=== PATIENT | female | born 1935 | race Caucasian/White ===

== ENCOUNTER 2017-10-29 02:50 | Inpatient (IN) | payer OTHER ==
[~2017-10-29] VITALS: Ht 167.6 cm; Wt 102.5 kg
[2017-10-29 05:05] LABS: BASOPHIL % 0.3 % (0-2); PLATELET COUNT 225 x10^3mcL (130-400); RED CELL DISTRIBUTION WIDTH 14.7 % (11.5-14.5)
[2017-10-29 05:09] LABS: CALCIUM 8.3 mg/dL (8.5-10.1); CARBON DIOXIDE 26.1 mmol/L (21-32); CHLORIDE SERUM 101 mmol/L (98-107); CREATININE SERUM 0.7 mg/dL (0.6-1.0); GLUCOSE SERUM 339 mg/dL (74-106); POTASSIUM SERUM 4.1 mmol/L (3.5-5.1); SODIUM SERUM 134 mmol/L (136-145)
[2017-10-29] MEDS ORDERED: SIMVASTATIN20 M1 PO (05:12)
[2017-10-29] MEDS ORDERED: LOSARTAN POTASS25 M1 PO (05:12)
[2017-10-29] MEDS ORDERED: FUROSEMIDE40 MG PO (05:13)
[2017-10-29] MEDS ORDERED: DIGOXIN0.25 M1 PO (05:13)
[2017-10-29] MEDS ORDERED: GLUCOVANCE1 TA2 PO (05:14)
[2017-10-29] MEDS ORDERED: NOR10 PO (05:14)
[2017-10-29] MEDS ORDERED: ENALAPRIL MALEA10 MG PO (05:15)
[2017-10-29] MEDS ORDERED: ELIQUIS2.5 MG PO (05:15)
[2017-10-29] MEDS ORDERED: LEVO-T25 MCG PO (05:16)
[2017-10-29] MEDS ORDERED: POTASSIUM CHLO25 MEQ PO (05:17)
[2017-10-29] MEDS ORDERED: GOOD SENSE OMEP20 MG PO (05:19)
[2017-10-29] MEDS ORDERED: CARVEDILOL3.125 M1 PO (05:19)
[2017-10-29] MEDS ORDERED: MELOXICAM7.5 M1 PO (05:20)
[2017-10-29] MEDS ORDERED: DSS100 MG PO (05:20)
[2017-10-29] MEDS ORDERED: PREDNISOLONE SO10 ML OP (05:21)
[2017-10-29 05:22] LABS: ALKALINE PHOSPHATASE 73 U/L (46-116); ALT/SGPT 29 U/L (14-59); AST/SGOT 21 U/L (15-37); BILIRUBIN TOTAL 0.37 mg/dL (0.20-1.00); FREE T4 1.31 ng/dL (0.76-1.46); TOTAL PROTEIN, SERUM 6.7 g/dL (6.4-8.2)
[2017-10-29] MEDS ORDERED: CLOBETASOL PROP0.055 (05:22)
[2017-10-29 05:23] LABS: ALBUMIN 3.2 g/dL (3.4-5.0); CHOLESTEROL 113 mg/dL (<200)
[2017-10-29 12:01] LABS: microscopic required? YES; urine erythrocyte TRACE (NEGATIVE)
[2017-10-29 15:31] LABS: MAGNESIUM 1.7 mg/dL (1.8-2.4); PHOSPHOROUS 3.1 mg/dL (2.5-4.9)
[2017-10-29 16:33] LABS: AMPHETAMINE QUAL UR NONE DETECTED (NEG <=1000)
[2017-10-29 17:55] VITALS: BP 174/82
[2017-10-29 18:26] VITALS: BP 180/87
[2017-10-29 18:33] VITALS: Ht 167.6 cm; Wt 102.5 kg
[2017-10-30 06:13] VITALS: BP 118/54
[2017-10-30 06:46] LABS: BASOPHIL % 0.3 % (0-2); PLATELET COUNT 245 x10^3mcL (130-400)
[2017-10-30 07:06] LABS: RED CELL DISTRIBUTION WIDTH 14.7 % (11.5-14.5)
[2017-10-30 07:13] LABS: CALCIUM 8.9 mg/dL (8.5-10.1); CARBON DIOXIDE 31.7 mmol/L (21-32); CHLORIDE SERUM 98 mmol/L (98-107); CREATININE SERUM 0.6 mg/dL (0.6-1.0); GLUCOSE SERUM 254 mg/dL (74-106); MAGNESIUM 2.5 mg/dL (1.8-2.4); PHOSPHOROUS 2.9 mg/dL (2.5-4.9); SODIUM SERUM 138 mmol/L (136-145)
[2017-10-30 09:33] VITALS: BP 166/72
[2017-10-30 13:05] VITALS: BP 150/88
[2017-10-30 17:33] VITALS: BP 156/79
[2017-10-31 05:57] VITALS: BP 172/89
[2017-10-31 06:57] LABS: BASOPHIL % 0.2 % (0-2); PLATELET COUNT 210 x10^3mcL (130-400)
[2017-10-31 07:12] LABS: RED CELL DISTRIBUTION WIDTH 15.1 % (11.5-14.5)
[2017-10-31 07:21] LABS: CALCIUM 8.3 mg/dL (8.5-10.1); CARBON DIOXIDE 27.4 mmol/L (21-32); CHLORIDE SERUM 100 mmol/L (98-107); CREATININE SERUM 0.6 mg/dL (0.6-1.0); GLUCOSE SERUM 288 mg/dL (74-106); POTASSIUM SERUM 3.4 mmol/L (3.5-5.1); SODIUM SERUM 135 mmol/L (136-145)
[2017-10-31 09:29] VITALS: BP 148/75
[2017-10-31 10:00] VITALS: BP 156/66
[2017-10-31 13:11] VITALS: BP 138/79
[2017-10-31 17:26] VITALS: BP 170/98
[2017-10-31 22:10] VITALS: BP 128/70
[2017-11-01 05:41] VITALS: BP 114/58
[2017-11-01 07:09] LABS: BASOPHIL % 0.3 % (0-2); PLATELET COUNT 194 x10^3mcL (130-400)
[2017-11-01 07:15] LABS: RED CELL DISTRIBUTION WIDTH 14.6 % (11.5-14.5)
[2017-11-01 07:48] LABS: CALCIUM 8.6 mg/dL (8.5-10.1); CARBON DIOXIDE 27.1 mmol/L (21-32); CHLORIDE SERUM 103 mmol/L (98-107); CREATININE SERUM 0.6 mg/dL (0.6-1.0); GLUCOSE SERUM 205 mg/dL (74-106); MAGNESIUM 1.8 mg/dL (1.8-2.4); PHOSPHOROUS 3.4 mg/dL (2.5-4.9); SODIUM SERUM 139 mmol/L (136-145)
[2017-11-01 08:00] VITALS: BP 99/48
[2017-11-01 13:56] VITALS: BP 136/51
[2017-11-01 18:35] VITALS: BP 134/68
[2017-11-01 22:08] VITALS: BP 132/72
[2017-11-02 04:56] VITALS: BP 131/66
[2017-11-02 07:41] LABS: BASOPHIL % 0.3 % (0-2); PLATELET COUNT 218 x10^3mcL (130-400); RED CELL DISTRIBUTION WIDTH 14.9 % (11.5-14.5)
[2017-11-02 08:00] LABS: CALCIUM 8.4 mg/dL (8.5-10.1); CARBON DIOXIDE 27.6 mmol/L (21-32); CHLORIDE SERUM 102 mmol/L (98-107); CREATININE SERUM 0.7 mg/dL (0.6-1.0); GLUCOSE SERUM 225 mg/dL (74-106); MAGNESIUM 1.8 mg/dL (1.8-2.4); PHOSPHOROUS 3.4 mg/dL (2.5-4.9); POTASSIUM SERUM 3.2 mmol/L (3.5-5.1); SODIUM SERUM 138 mmol/L (136-145)
[2017-11-02 09:30] VITALS: BP 114/67
[2017-11-02 10:16] VITALS: BP 97/57
[2017-11-02 13:30] VITALS: BP 112/59
[2017-11-02 21:47] VITALS: BP 147/81
[2017-11-03 05:55] VITALS: BP 103/42
[2017-11-03 07:35] LABS: BASOPHIL % 0.6 % (0-2); PLATELET COUNT 220 x10^3mcL (130-400)
[2017-11-03 07:41] LABS: RED CELL DISTRIBUTION WIDTH 15.2 % (11.5-14.5)
[2017-11-03 08:01] LABS: CALCIUM 8.1 mg/dL (8.5-10.1); CARBON DIOXIDE 29.9 mmol/L (21-32); CHLORIDE SERUM 105 mmol/L (98-107); CREATININE SERUM 0.8 mg/dL (0.6-1.0); GLUCOSE SERUM 162 mg/dL (74-106); MAGNESIUM 1.6 mg/dL (1.8-2.4); PHOSPHOROUS 3.4 mg/dL (2.5-4.9); POTASSIUM SERUM 3.6 mmol/L (3.5-5.1); SODIUM SERUM 141 mmol/L (136-145)
[2017-11-03 11:34] VITALS: BP 114/59
[2017-11-03 13:30] VITALS: BP 110/44
[2017-11-03 22:04] VITALS: BP 128/64
[2017-11-04 06:24] VITALS: BP 163/82
[2017-11-04 07:40] LABS: CALCIUM 8.6 mg/dL (8.5-10.1); CARBON DIOXIDE 25.4 mmol/L (21-32); CHLORIDE SERUM 106 mmol/L (98-107); CREATININE SERUM 0.6 mg/dL (0.6-1.0); GLUCOSE SERUM 174 mg/dL (74-106); MAGNESIUM 1.6 mg/dL (1.8-2.4); PHOSPHOROUS 3.3 mg/dL (2.5-4.9); POTASSIUM SERUM 3.2 mmol/L (3.5-5.1); SODIUM SERUM 142 mmol/L (136-145)
[2017-11-04 07:51] LABS: BASOPHIL % 0.7 % (0-2); PLATELET COUNT 228 x10^3mcL (130-400)
[2017-11-04 10:47] VITALS: BP 140/73
[2017-11-04 13:56] VITALS: BP 171/84
[2017-11-04 16:56] VITALS: BP 155/74
[2017-11-04 22:15] VITALS: BP 152/91
[2017-11-05 06:48] VITALS: BP 144/100
[2017-11-05 07:37] LABS: BASOPHIL % 0.4 % (0-2); PLATELET COUNT 244 x10^3mcL (130-400)
[2017-11-05 07:38] LABS: RED CELL DISTRIBUTION WIDTH 14.6 % (11.5-14.5)
[2017-11-05 08:39] LABS: CALCIUM 8.7 mg/dL (8.5-10.1); CARBON DIOXIDE 29.2 mmol/L (21-32); CHLORIDE SERUM 103 mmol/L (98-107); CREATININE SERUM 0.6 mg/dL (0.6-1.0); GLUCOSE SERUM 189 mg/dL (74-106); MAGNESIUM 2.1 mg/dL (1.8-2.4); PHOSPHOROUS 2.8 mg/dL (2.5-4.9); POTASSIUM SERUM 3.5 mmol/L (3.5-5.1); SODIUM SERUM 140 mmol/L (136-145)
[2017-11-05 09:10] VITALS: BP 148/104
[2017-11-05] MEDS ORDERED: COR3 PO (11:19)
[2017-11-05] MEDS ORDERED: BG FS (11:20)
[2017-11-05] MEDS ORDERED: HUMULIN R100 U/1 M1 SC (11:31)
[2017-11-05] MEDS ORDERED: ACCU-CHEK1 EACH MC (11:33)
[2017-11-05] MEDS ORDERED: VENTOLIN H0.09 MG/A1 INH (12:21)
[2017-11-05 12:50] VITALS: BP 138/83
[2017-11-05 16:28] VITALS: BP 138/83
== END 2017-11-05 18:39 | disposition home health service (06) | DRG 720 ==
LOC: EDBD 02:50 → ED 02:50 → IC 05:55 → DU 05:55 → IC 07:22 → DU 16:03
PROVIDERS: Emergency Medicine; Family Medicine; Student in an Organized Health Care Education/Training Program
DX: A41.9 Sepsis, unspecified organism (principal); J69.0 Pneumonitis due to inhalation of food and vomit; N17.0 Acute kidney failure with tubular necrosis; G93.41 Metabolic encephalopathy; T68.XXXA Hypothermia, initial encounter; E44.0 Moderate protein-calorie malnutrition; D68.59 Other primary thrombophilia; E11.65 Type 2 diabetes mellitus with hyperglycemia; I10 Essential (primary) hypertension; E03.9 Hypothyroidism, unspecified; E78.00 Pure hypercholesterolemia, unspecified; I48.91 Unspecified atrial fibrillation; M19.90 Unspecified osteoarthritis, unspecified site; Z90.49 Acquired absence of other specified parts of digestive tract; K21.9 Gastro-esophageal reflux disease without esophagitis; Z86.73 Personal history of transient ischemic attack (TIA), and cerebral infarction without residual deficits; E66.9 Obesity, unspecified; K59.00 Constipation, unspecified; Z68.36 Body mass index [BMI] 36.0-36.9, adult
CPT/HCPCS: 36600; 82962; 83880; 84439; 92526-GN; 92610; 97110-GP; 97116-GP; 97530-GP; G0480; J1200; J1720; J1815; J1885; J1940; J2270; J2405; J2543; J3370; J3475; J3480; J3490; J7030; J7042; J7620; Q0092

== ENCOUNTER 2017-12-15 00:16 | Inpatient (IN) | payer OTHER ==
[2017-12-15] VITALS (7 sets, daily range): BP systolic 132–163; BP diastolic 76–98
[~2017-12-15] VITALS: Ht 165.1 cm; Wt 104.5 kg
[~2017-12-15 00:16] MED LIST: ACCU-CHEK1 EACH MC; BG FS; CARVEDILOL3.125 M1 PO; CLOBETASOL PROP0.055; COR3 PO; DIGOXIN0.25 M1 PO; DSS100 MG PO; ELIQUIS2.5 MG PO; ENALAPRIL MALEA10 MG PO; FUROSEMIDE40 MG PO; GLUCOVANCE1 TA2 PO; GOOD SENSE OMEP20 MG PO; HUMULIN R100 U/1 M1 SC; LEVO-T25 MCG PO; LOSARTAN POTASS25 M1 PO; MELOXICAM7.5 M1 PO; NOR10 PO; POTASSIUM CHLO25 MEQ PO; PREDNISOLONE SO10 ML OP; SIMVASTATIN20 M1 PO; VENTOLIN H0.09 MG/A1 INH
[2017-12-15 01:01] LABS: BASOPHIL % 0.3 % (0-2); PLATELET COUNT 271 x10^3mcL (130-400)
[2017-12-15 01:03] LABS: RED CELL DISTRIBUTION WIDTH 15.6 % (11.5-14.5)
[2017-12-15 01:24] LABS: CALCIUM 8.1 mg/dL (8.5-10.1); CARBON DIOXIDE 28.6 mmol/L (21-32); CHLORIDE SERUM 99 mmol/L (98-107); CREATININE SERUM 0.9 mg/dL (0.6-1.0); GLUCOSE SERUM 311 mg/dL (74-106); POTASSIUM SERUM 4.4 mmol/L (3.5-5.1); SODIUM SERUM 136 mmol/L (136-145)
[2017-12-15 01:37] LABS: ALKALINE PHOSPHATASE 77 U/L (46-116); ALT/SGPT 20 U/L (14-59); AST/SGOT 12 U/L (15-37); BILIRUBIN TOTAL 0.2 mg/dL (0.20-1.00); LIPASE 187 IU/L (73-393)
[2017-12-15 01:38] LABS: ALBUMIN 2.8 g/dL (3.4-5.0)
[2017-12-15] MEDS ORDERED: LOSARTAN POTAS100 M1 PO (02:40)
[2017-12-15] MEDS ORDERED: CARVEDILOL3.125 M1 PO (02:41)
[2017-12-15] MEDS ORDERED: POTASSIUM CHLO10 MEQ PO (02:41)
[2017-12-15] MEDS ORDERED: LEVOTHYROXIN0.025 M2 PO (02:42)
[2017-12-15] MEDS ORDERED: GOOD NEIGHBOR P20 M2 PO (02:42)
[2017-12-15] MEDS ORDERED: AMLODIPINE BESY10 M2 PO (02:42)
[2017-12-15] MEDS ORDERED: ELIQUIS2.5 MG PO (02:43)
[2017-12-15] MEDS ORDERED: FUROSEMIDE40 MG PO (02:43)
[2017-12-15] MEDS ORDERED: SIMVASTATIN20 M1 PO (02:44)
[2017-12-15] MEDS ORDERED: GLUCOVANCE1 TA2 (02:44)
[2017-12-15] MEDS ORDERED: APAP/HYDROCODON1 T15 PO (02:45)
[2017-12-15] MEDS ORDERED: TRAMADOL HCL50 MG PO (02:45)
[2017-12-15 03:43] LABS: MAGNESIUM 1.1 mg/dL (1.8-2.4); PHOSPHOROUS 3.7 mg/dL (2.5-4.9)
[2017-12-15 03:49] LABS: CHOLESTEROL/HDL RATIO 2.4
[2017-12-15 03:51] LABS: T3 TOTAL 1.21 ng/mL
[2017-12-15 04:00] LABS: FREE T4 1.3 ng/dL (0.76-1.46); FREE THYROXINE INDEX 2.6 ug/dL (1.4-4.5); T4(THYROXINE) 7.3 ug/dL (4.7-13.3)
[2017-12-15 04:03] LABS: microscopic required? YES; urine erythrocyte 2+ (NEGATIVE)
[2017-12-16 05:22] VITALS: BP 150/78
[2017-12-16 10:03] VITALS: BP 138/75
[2017-12-16 12:44] VITALS: BP 134/79
[2017-12-16 16:48] LABS: BASOPHIL % 0.6 % (0-2); PLATELET COUNT 297 x10^3mcL (130-400)
[2017-12-16 16:50] VITALS: BP 149/81
[2017-12-16 16:53] LABS: RED CELL DISTRIBUTION WIDTH 15.6 % (11.5-14.5)
[2017-12-16 16:59] LABS: CALCIUM 8.5 mg/dL (8.5-10.1); CARBON DIOXIDE 34.3 mmol/L (21-32); CHLORIDE SERUM 100 mmol/L (98-107); CREATININE SERUM 0.6 mg/dL (0.6-1.0); GLUCOSE SERUM 111 mg/dL (74-106); MAGNESIUM 1.2 mg/dL (1.8-2.4); PHOSPHOROUS 4.4 mg/dL (2.5-4.9); POTASSIUM SERUM 3.1 mmol/L (3.5-5.1); SODIUM SERUM 142 mmol/L (136-145)
[2017-12-16 21:17] VITALS: BP 128/81
[2017-12-17 05:41] VITALS: BP 146/87
[2017-12-17 07:07] LABS: CALCIUM 8.5 mg/dL (8.5-10.1); CARBON DIOXIDE 30.6 mmol/L (21-32); CHLORIDE SERUM 101 mmol/L (98-107); CREATININE SERUM 0.6 mg/dL (0.6-1.0); GLUCOSE SERUM 236 mg/dL (74-106); MAGNESIUM 1.7 mg/dL (1.8-2.4); PHOSPHOROUS 4.1 mg/dL (2.5-4.9); POTASSIUM SERUM 3.4 mmol/L (3.5-5.1); SODIUM SERUM 139 mmol/L (136-145)
[2017-12-17 07:08] LABS: BASOPHIL % 0.2 % (0-2); PLATELET COUNT 251 x10^3mcL (130-400)
[2017-12-17 07:34] LABS: RED CELL DISTRIBUTION WIDTH 15.4 % (11.5-14.5)
[2017-12-17 09:38] VITALS: BP 124/74
[2017-12-17 18:04] VITALS: BP 189/95; BP 96/52
[2017-12-17 20:51] VITALS: BP 114/62
[2017-12-18 05:44] VITALS: BP 136/79
[2017-12-18 07:45] LABS: CALCIUM 8.6 mg/dL (8.5-10.1); CARBON DIOXIDE 30.3 mmol/L (21-32); CHLORIDE SERUM 98 mmol/L (98-107); CREATININE SERUM 0.7 mg/dL (0.6-1.0); GLUCOSE SERUM 206 mg/dL (74-106); MAGNESIUM 1.8 mg/dL (1.8-2.4); PHOSPHOROUS 3.3 mg/dL (2.5-4.9); POTASSIUM SERUM 3.4 mmol/L (3.5-5.1); SODIUM SERUM 136 mmol/L (136-145)
[2017-12-18 07:51] LABS: BASOPHIL % 0.2 % (0-2); PLATELET COUNT 242 x10^3mcL (130-400)
[2017-12-18 07:54] LABS: RED CELL DISTRIBUTION WIDTH 15.5 % (11.5-14.5)
[2017-12-18 10:38] VITALS: BP 97/65
[2017-12-18 13:48] VITALS: BP 125/99
[2017-12-18 15:35] VITALS: BP 136/79
[2017-12-18 18:22] VITALS: BP 109/61
[2017-12-18 20:07] VITALS: Ht 165.1 cm; Wt 104.5 kg
[2017-12-18 20:47] VITALS: BP 106/63
[2017-12-19 04:27] VITALS: BP 105/57
[2017-12-19 07:17] LABS: BASOPHIL % 0 % (0-2); PLATELET COUNT 228 x10^3mcL (130-400); RED CELL DISTRIBUTION WIDTH 15.9 % (11.5-14.5)
[2017-12-19 07:41] LABS: CALCIUM 8.6 mg/dL (8.5-10.1); CARBON DIOXIDE 27.1 mmol/L (21-32); CHLORIDE SERUM 96 mmol/L (98-107); CREATININE SERUM 0.8 mg/dL (0.6-1.0); GLUCOSE SERUM 211 mg/dL (74-106); MAGNESIUM 1.7 mg/dL (1.8-2.4); PHOSPHOROUS 4.1 mg/dL (2.5-4.9); SODIUM SERUM 133 mmol/L (136-145)
[2017-12-19 09:13] VITALS: BP 108/62
[2017-12-19 13:57] VITALS: BP 110/65
[2017-12-19 17:15] VITALS: BP 104/60
[2017-12-19 21:38] VITALS: BP 107/53
[2017-12-20 05:03] VITALS: BP 96/56
[2017-12-20 07:20] LABS: BASOPHIL % 0.4 % (0-2); PLATELET COUNT 214 x10^3mcL (130-400); RED CELL DISTRIBUTION WIDTH 15.7 % (11.5-14.5)
[2017-12-20 07:30] LABS: CALCIUM 8.6 mg/dL (8.5-10.1); CARBON DIOXIDE 28.6 mmol/L (21-32); CHLORIDE SERUM 99 mmol/L (98-107); CREATININE SERUM 0.8 mg/dL (0.6-1.0); GLUCOSE SERUM 201 mg/dL (74-106); MAGNESIUM 1.6 mg/dL (1.8-2.4); PHOSPHOROUS 3.8 mg/dL (2.5-4.9); POTASSIUM SERUM 4.1 mmol/L (3.5-5.1); SODIUM SERUM 133 mmol/L (136-145)
[2017-12-20 08:45] VITALS: BP 127/80
[2017-12-20 09:21] VITALS: BP 117/71
[2017-12-20 16:50] VITALS: BP 134/72
[2017-12-20 20:58] VITALS: BP 118/62
[2017-12-21 05:57] VITALS: BP 103/64
[2017-12-21 07:54] LABS: BASOPHIL % 0 % (0-2); PLATELET COUNT 193 x10^3mcL (130-400); RED CELL DISTRIBUTION WIDTH 15.3 % (11.5-14.5)
[2017-12-21 07:55] LABS: CALCIUM 8.2 mg/dL (8.5-10.1); CARBON DIOXIDE 25.1 mmol/L (21-32); CHLORIDE SERUM 97 mmol/L (98-107); CREATININE SERUM 0.7 mg/dL (0.6-1.0); GLUCOSE SERUM 158 mg/dL (74-106); MAGNESIUM 1.5 mg/dL (1.8-2.4); PHOSPHOROUS 3.6 mg/dL (2.5-4.9); POTASSIUM SERUM 4.4 mmol/L (3.5-5.1); SODIUM SERUM 134 mmol/L (136-145)
[2017-12-21 09:12] VITALS: BP 94/55
[2017-12-21] MEDS ORDERED: MONTELUKAST SOD10 M1 PO (09:35)
[2017-12-21] MEDS ORDERED: CLA10 PO (09:35)
[2017-12-21] MEDS ORDERED: SYN5 PO (09:36)
[2017-12-21] MEDS ORDERED: SANTYL250 U/GM TOP (11:26)
[2017-12-21 15:48] VITALS: BP 94/55
== END 2017-12-21 17:05 | disposition home health service (06) | DRG 720 ==
LOC: ED 00:16 → IC 02:27 → DU 02:27 → IC 04:44 → DU 17:44 → MU 12-20 09:28
PROVIDERS: Emergency Medicine; Family Medicine; Family Medicine Sports Medicine
PROC: 02HV33Z Insertion of Infusion Device into Superior Vena Cava, Percutaneous Approach (ICD-10-PCS; principal; 2017-12-15)
PROC: B548ZZA Ultrasonography of Superior Vena Cava, Guidance (ICD-10-PCS; 2017-12-15)
DX: A41.9 Sepsis, unspecified organism (principal); I63.9 Cerebral infarction, unspecified; N17.0 Acute kidney failure with tubular necrosis; J69.0 Pneumonitis due to inhalation of food and vomit; E43 Unspecified severe protein-calorie malnutrition; G93.41 Metabolic encephalopathy; R65.20 Severe sepsis without septic shock; L89.893 Pressure ulcer of other site, stage 3; T78.3XXA Angioneurotic edema, initial encounter; I50.9 Heart failure, unspecified; I11.0 Hypertensive heart disease with heart failure; I48.91 Unspecified atrial fibrillation; N39.0 Urinary tract infection, site not specified; E78.00 Pure hypercholesterolemia, unspecified; Z88.0 Allergy status to penicillin; E11.65 Type 2 diabetes mellitus with hyperglycemia; E83.42 Hypomagnesemia; E83.51 Hypocalcemia; E11.51 Type 2 diabetes mellitus with diabetic peripheral angiopathy without gangrene; M81.0 Age-related osteoporosis without current pathological fracture; R31.9 Hematuria, unspecified; K21.9 Gastro-esophageal reflux disease without esophagitis; Z88.8 Allergy status to other drugs, medicaments and biological substances; Z68.41 Body mass index [BMI] 40.0-44.9, adult; Z90.49 Acquired absence of other specified parts of digestive tract; L03.115 Cellulitis of right lower limb
CPT/HCPCS: 36556; 36600; 82962; 83880; 84439; 92610-GN; 97110-GP; 97116-GP; 97530-GP; 97535-GP; J1200; J1642; J1815; J1885; J1940; J1956; J2060; J2270; J2800; J2930; J3475; J3480; J3490; J7030; J7040; J7050; J7620; Q0092